=== PATIENT | male | born 1970 | race Caucasian/White ===

== ENCOUNTER 2017-02-06 09:06 | Emergency (ER) | payer OTHER ==
[~2017-02-06] VITALS: Ht 172.7 cm; Wt 99.3 kg
[2017-02-06 09:11] VITALS: BP 144/73
== END 2017-02-06 10:54 | disposition home or self-care (01) ==
LOC: ER 09:07
DX: S93.601A Unspecified sprain of right foot, initial encounter (principal); Z91.041 Radiographic dye allergy status; S86.001A Unspecified injury of right Achilles tendon, initial encounter; W22.8XXA Striking against or struck by other objects, initial encounter; Y93.01 Activity, walking, marching and hiking; Y92.89 Other specified places as the place of occurrence of the external cause; Y99.8 Other external cause status
CPT/HCPCS: 29515; 73610